=== PATIENT | male | born 1970 | race African-American/Black ===

== ENCOUNTER 2017-03-04 09:26 | Observation (INO) | payer OTHER ==
[2017-03-04] MEDS ORDERED: NS 0.9% 1000 ML* 1,000 ML IV ONE (09:48)
[2017-03-04 10:10] LABS: Hematocrit 42 % (42-52); Hemoglobin 14.5 g/dl (14.0-18.0); Mean Corpuscular HGB Conc 34 g/dl (31-36); Mean Corpuscular Hemoglobin 29 pg (27-31); Mean Corpuscular Volume 84 fL (80-94); Mean Platelet Volume 8 um3 (7.4-10.4); Red Blood Count 5.05 10^6/ul (4.0-5.4); Red Cell Distribution Width 14 % (10.5-15); White Blood Count 4.7 10^3/ul (3.5-10.8)
[2017-03-04 10:15] LABS: Urine Bacteria Absent (Absent); Urine Bilirubin Negative (Negative); Urine Glucose Negative (Negative); Urine Nitrite Negative (Negative)
[2017-03-04 10:22] LABS: ALT 23 U/L (7-52); AST 41 U/L (13-39); Albumin 3.7 g/dL (3.2-5.2); Alkaline Phosphatase 57 U/L (34-104); Anion Gap 11 mmol/L (2-11); BUN/Creatinine Ratio 11.8 (8-20); Blood Urea Nitrogen 12 mg/dL (6-24); CO2 Carbon Dioxide 24 mmol/L (22-32); Chloride 97 mmol/L (101-111); EGFR African American 100.2 (>60); Globulin 4.3 g/dL (2-4); Glucose 148 mg/dL (70-100); Magnesium 1.5 mg/dL (1.9-2.7); Potassium 3.6 mmol/L (3.5-5.0); Sodium 132 mmol/L (133-145)
[2017-03-04 10:23] LABS: Troponin I 0.01 ng/mL (<0.04)
[2017-03-04 10:25] LABS: Benzodiazepine Urine Screen None Detected (None Detect)
--- NOTE | 2017-03-04 10:30 | RAD ---
HISTORY: Syncope COMPARISONS: June 26, 2015 TECHNIQUE: Multiple contiguous axial CT scans were obtained of the head without intravenous contrast. FINDINGS: HEMORRHAGE/INFARCT: There is no hemorrhage or acute infarct. MASSES/SHIFT: There is no mass or shift. EXTRA-AXIAL SPACES: There are no extra-axial fluid collections. SULCI AND VENTRICLES: The sulci and ventricles are normal in size and position for the patient's stated age. CEREBRUM: There are no focal parenchymal abnormalities. BRAINSTEM: There are no focal parenchymal abnormalities. CEREBELLUM: There are no focal parenchymal abnormalities. VESSELS: The vessels are grossly normal. PARANASAL SINUSES: The paranasal sinuses are clear. ORBITS: The orbits are unremarkable. BONES AND SOFT TISSUE: No bone or soft tissue abnormalities are noted. OTHER: None IMPRESSION: NO ACUTE INTRACRANIAL PATHOLOGY.
[2017-03-04 10:32] LABS: Alcohol < 10 mg/dL (<10)
[2017-03-04 10:41] LABS: TSH (Thyroid Stimulating Horm) 1.23 mcIU/mL (0.34-5.60)
--- NOTE | 2017-03-04 10:45 | RAD ---
INDICATION: Syncope COMPARISON: None TECHNIQUE: PA and lateral dual-energy views were obtained. FINDINGS: Bones/Soft Tissues: There are no acute bony findings. Cardiomediastinal: The cardiomediastinal silhouette is normal. Lungs: There are no infiltrates. Pleura: There are no pleural effusions. Other: None IMPRESSION: NEGATIVE EXAMINATION.
[2017-03-04] MEDS ORDERED: Magnesium Oxide TAB* 400 MG PO ONE (10:50)
[2017-03-04] MEDS ORDERED: Ketorolac INJ* 30 MG/ML 1 ML VIAL IV PUSH ONE (11:19)
[2017-03-04] MEDS ORDERED: Ondansetron INJ* 2 MG/ML VIAL IV PRN (11:25)
[2017-03-04] MEDS ORDERED: Thiamine IV* 100 MG/ML 2 ML VIAL IV ONE (11:27)
[2017-03-04] MEDS ORDERED: NS 0.9% 1000 ML* 1,000 ML IV SCH (11:30)
[2017-03-04] MEDS ORDERED: LORazepam INJ* 2 MG/ML 1 ML VIAL IV SCH (12:00)
[2017-03-04] MEDS ORDERED: hydrALAZINE IV* 20 MG/ML VIAL IV SLOW PU PRN (12:07)
[2017-03-04] MEDS ORDERED: amLODIPine TAB* 5 MG PO ONE (13:00)
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
[2017-03-04] MEDS: Acetaminophen TAB* 325 MG PO PRN (20:22)
[2017-03-05 05:49] LABS: Hematocrit 40 % (42-52); Hemoglobin 13.8 g/dl (14.0-18.0); Mean Corpuscular HGB Conc 34 g/dl (31-36); Mean Corpuscular Hemoglobin 29 pg (27-31); Mean Corpuscular Volume 85 fL (80-94); Mean Platelet Volume 8 um3 (7.4-10.4); Red Blood Count 4.71 10^6/ul (4.0-5.4); Red Cell Distribution Width 14 % (10.5-15); White Blood Count 4.1 10^3/ul (3.5-10.8)
[2017-03-05 06:09] LABS: Albumin 3.2 g/dL (3.2-5.2); BUN/Creatinine Ratio 11.7 (8-20); Calcium 8.8 mg/dL (8.6-10.3); EGFR African American 99.1 (>60); EGFR Non-African American 77.1 (>60); Globulin 3.8 g/dL (2-4); Potassium 4.1 mmol/L (3.5-5.0); Total Bilirubin 0.7 mg/dL (0.2-1.0)
[2017-03-05] MEDS: Multivitamins/Minerals TAB PO SCH (08:50)
[2017-03-05] MEDS: Thiamine TAB* 100 MG TAB PO SCH (08:50)
[2017-03-05] MEDS: Folic Acid TAB* 1 MG PO SCH (08:51)
[2017-03-05] MEDS: amLODIPine TAB* 5 MG PO SCH (08:51)
[2017-03-05] MEDS: Acetaminophen TAB* 325 MG PO PRN (08:53)
[2017-03-05 10:03] LABS: Magnesium 1.8 mg/dL (1.9-2.7)
[2017-03-05] MEDS ORDERED: Magnesium Sulfate 2 GM IV* 2 GM/50 ML BAG IVPB ONE (11:30)
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
--- NOTE | 2017-03-05 15:37 | ECHO ---
Patient: CARRIE CHAMBERS [facility] Rec#: [id number] : 1970 Date: 03/05/2017 Age: 46y Height: 172.72 cm / 68.0 in Weight: 100.7 kg / 221.9 lbs Sex: M BSA: 2.1 Room#: [facility] Admit Date#: 03/05/2017 Type: Inpatient Referring: Evelin Campos Reading: Hiram Quintero DO Braker Passenger Train: Sonya Lancaster RN RDCS CC: Vikki Hyatt MD Transthoracic Echocardiogram Indication: Syncope BP: 150/95 HR: 77 Rhythm: NSR Findings History: HTN, ETOH use, marijuana use Technical Comments: The study quality is fair. Completed at 1525. Left Ventricle: The left ventricular chamber size is normal. Mild to moderate concentric left ventricular hypertrophy is observed. Global left ventricular wall motion and contractility are within normal limits. There is normal left ventricular systolic function. The estimated ejection fraction is 55-60%. Abnormal left ventricular diastolic filling is observed, consistent with impaired relaxation. Left Atrium: The left atrium is mildly dilated. Right Ventricle: The right ventricular chamber size and systolic function are within normal limits. Right Atrium: The right atrial cavity size is normal. Aortic Valve: The aortic valve is trileaflet. The aortic valve leaflets are mildly thickened. There is trace to mild aortic regurgitation. There is no evidence of aortic stenosis. Mitral Valve: The mitral valve leaflets are mildly thickened. There is a trace of mitral regurgitation. There is no evidence of mitral stenosis. Tricuspid Valve: The tricuspid valve leaflets are normal. There is trace tricuspid regurgitation. Unable to estimate the right ventricular systolic pressure. Pulmonic Valve: The pulmonic valve appears normal. There is a trace pulmonic regurgitation. There is no pulmonic stenosis. Pericardium: There is no significant pericardial effusion. Aorta: There is no dilatation of the ascending aorta. There is no dilatation of the aortic arch. There is no dilation of the aortic root. Pulmonary Artery: The main pulmonary artery is not well visualized. Venous: The inferior vena cava appears normal in size. There is a greater than 50% respiratory change in the inferior vena cava dimension. Conclusions The left ventricular chamber size is normal. Mild to moderate concentric left ventricular hypertrophy is observed. There is normal left ventricular systolic function. The estimated ejection fraction is 55-60%. The left atrium is mildly dilated. The right ventricular chamber size and systolic function are within normal limits. No significant valvular abnormalities are noted. No prior studies available for comparison at time of interpretation. Measurements Name Value Normal Range RVDdMajor (2D) 3.7 cm (2.2 - 4.4) RAd ISD 4CH 4.7 cm (3.4 - 4.9) RA (A4C)W 4.3 cm (2.9 - 4.6) IVSd (2D) 1.4 cm (0.6 - 1) LVPWd (2D) 1.4 cm (0.6 - 1) LVIDd (2D) 4.2 cm (3.6 - 5.4) LVIDs (2D) 3.3 cm - LV FS (2D) 21 % (25 - 45) Aortic Annulus 2.3 cm (1.4 - 2.6) Ao root diameter (2D) 3.2 cm (2.1 - 3.5) Ascending Ao 3.2 cm (2.1 - 3.4) Aortic arch 2.9 cm (1.8 - 3.4) LA dimension (AP) 2D 4.2 cm (2.3 - 3.8) LAd ISD 4CH 5 cm (2.9 - 5.3) LA ISD 4CH W 4.3 cm (2.5 - 4.5) Name Value Normal Range LA ESV SP 4CH (A/L) 64 ml - LA ESV SP 2CH (A/L) 58 ml - LA ESV BP (A/L) 62 ml - LA ESV BP (A/L) index 29 ml/m2 - LA ESV SP 4CH (MOD) 59 ml - LA ESV SP 2CH (MOD) 56 ml - Name Value Normal Range MV E-wave Vmax 0.53 m/sec - MV deceleration time 197 msec - MV A-wave Vmax 0.83 m/sec - MV E:A ratio 0.64 ratio - LV septal e' Vmax 0.08 m/sec - LV lateral e' Vmax 0.1 m/sec - LV E:e' septal ratio 6.6 ratio - LV E:e' lateral ratio 5.3 ratio - Name Value Normal Range AV Vmax 1.6 m/sec - AV VTI 24.6 cm - AV peak gradient 10 mmHg - AV mean gradient 5 mmHg - LVOT Vmax 1.1 m/sec - LVOT VTI 17.4 cm - LVOT peak gradient 5 mmHg - LVOT mean gradient 3 mmHg - KENYA Vmax 1 m/sec - Name Value Normal Range IVC diameter 1.2 cm - Name Value Normal Range PV Vmax 1 m/sec -
[2017-03-05] MEDS: Heparin VIAL(*) 5000 UNITS/ML VIAL (FIVE THOUSAND) SUBCUT SCH (21:22)
[2017-03-06 05:18] LABS: Hematocrit 39 % (42-52); Hemoglobin 13.2 g/dl (14.0-18.0); Mean Corpuscular HGB Conc 34 g/dl (31-36); Mean Corpuscular Hemoglobin 29 pg (27-31); Mean Corpuscular Volume 86 fL (80-94); Mean Platelet Volume 8 um3 (7.4-10.4); Red Blood Count 4.57 10^6/ul (4.0-5.4); Red Cell Distribution Width 14 % (10.5-15); White Blood Count 5.1 10^3/ul (3.5-10.8)
[2017-03-06 05:27] LABS: BUN/Creatinine Ratio 9.9 (8-20); Calcium 8.6 mg/dL (8.6-10.3); EGFR African American 101.4 (>60); EGFR Non-African American 78.8 (>60); Magnesium 1.9 mg/dL (1.9-2.7); Potassium 3.6 mmol/L (3.5-5.0)
[2017-03-06] MEDS: Heparin VIAL(*) 5000 UNITS/ML VIAL (FIVE THOUSAND) SUBCUT SCH (06:00)
[2017-03-06 08:01] VITALS: BP 136/88
[2017-03-06] MEDS: Thiamine TAB* 100 MG TAB PO SCH (08:19)
[2017-03-06] MEDS: amLODIPine TAB* 5 MG PO SCH (08:19)
[2017-03-06] MEDS: Multivitamins/Minerals TAB PO SCH (08:19)
[2017-03-06] MEDS: Folic Acid TAB* 1 MG PO SCH (08:20)
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
== END 2017-03-06 10:00 | disposition home or self-care (01) ==
LOC: ED 09:26 → MEDTELE 11:25
PROVIDERS: ADMIT Internal Medicine; ATTEND Internal Medicine
DX: R55 Syncope and collapse (principal); R74.0 Nonspecific elevation of levels of transaminase and lactic acid dehydrogenase [LDH]; F10.20 Alcohol dependence, uncomplicated; I10 Essential (primary) hypertension; R00.0 Tachycardia, unspecified; I51.7 Cardiomegaly; R06.02 Shortness of breath; Z79.899 Other long term (current) drug therapy
CPT/HCPCS: 36415; 70450; 71020; 80048; 80053; 80307; 80320; 81003; 81015; 83036; 83605; 83735; 83880; 84443; 84484; 85025; 85379; 93005; 93306; 95816; 96361; 96365; 96372; 96375; 99283; A9270-GY; G0378; G0480; J1644; J1885

== ENCOUNTER 2017-04-29 15:28 | Observation (INO) | payer OTHER ==
[2017-04-29] MEDS ORDERED: Labetalol IV* 5 MG/ML 20 ML VIAL IV PUSH ONE (17:26)
[2017-04-29] MEDS ORDERED: Furosemide IV* 10 MG/ML 2 ML VIAL (20 MG) IV SLOW PU ONE (17:26)
[2017-04-29 17:32] LABS: Hematocrit 43 % (42-52); Hemoglobin 14.5 g/dl (14.0-18.0); Mean Corpuscular HGB Conc 34 g/dl (31-36); Mean Corpuscular Hemoglobin 29 pg (27-31); Mean Corpuscular Volume 84 fL (80-94); Mean Platelet Volume 8 um3 (7.4-10.4); Red Blood Count 5.08 10^6/ul (4.0-5.4); Red Cell Distribution Width 14 % (10.5-15); White Blood Count 4.8 10^3/ul (3.5-10.8)
[2017-04-29 17:45] LABS: Albumin 3.8 g/dL (3.2-5.2); BUN/Creatinine Ratio 10.9 (8-20); C Reactive Protein 1.64 mg/L (< 5.00); Calcium 9.8 mg/dL (8.6-10.3); EGFR African American 112.9 (>60); EGFR Non-African American 87.8 (>60); Globulin 4.1 g/dL (2-4); Potassium 3.9 mmol/L (3.5-5.0); Total Bilirubin 0.6 mg/dL (0.2-1.0); Total Protein 7.9 g/dL (6.4-8.9)
[2017-04-29 17:48] LABS: Troponin I 0.01 ng/mL (<0.04)
--- NOTE | 2017-04-29 18:22 | RAD ---
Indication: Shortness of breath. 2 views of the chest demonstrate no mediastinal shift. Heart is of normal size and configuration. Lung mccloud are clear. IMPRESSION: No active cardiopulmonary disease is noted.
[2017-04-29] MEDS ORDERED: Ondansetron INJ* 2 MG/ML VIAL IV PRN (18:31)
[2017-04-29] MEDS ORDERED: Acetaminophen TAB* 325 MG PO PRN (18:31)
[2017-04-29] MEDS ORDERED: hydrALAZINE IV* 20 MG/ML VIAL IV SLOW PU PRN (18:35)
[2017-04-29] MEDS ORDERED: Furosemide IV* 10 MG/ML 2 ML VIAL (20 MG) IV ONE (18:36)
[2017-04-29 18:37] LABS: Urine Bacteria Absent (Absent); Urine Bilirubin Negative (Negative); Urine Glucose Negative (Negative); Urine Nitrite Negative (Negative)
[2017-04-29] MEDS ORDERED: LORazepam TAB(*) 1 MG PO ONE (18:56)
[2017-04-29] MEDS ORDERED: Enoxaparin(*) 40 MG/0.4 ML SYR SUBCUT SCH (19:00)
[2017-04-29] MEDS ORDERED: LORazepam TAB(*) 1 MG PO SCH (19:00)
[2017-04-29] MEDS: amLODIPine TAB* 5 MG PO SCH (19:04)
[2017-04-29 21:03] LABS: TSH (Thyroid Stimulating Horm) 3.33 mcIU/mL (0.34-5.60)
--- NOTE | 2017-04-29 21:06 | HP ---
ADMISSION HISTORY AND PHYSICAL: DATE OF ADMISSION: 04/29/17 PRIMARY CARE PROVIDER: None. ADMITTING PROVIDER: MENDY Dahl SUPERVISING PHYSICIAN: Dr. Aldo Brown.* (DICTATED BY MENDY DAHL) CHIEF COMPLAINT: Alcohol withdrawal with shortness of breath and lower extremity edema. HISTORY OF PRESENT ILLNESS: This is a 46-year-old gentleman with history of hypertension. He has been without his antihypertensive medications for the last several days, who was arrested last night and presented to the emergency department with the above complaints. The patient states that he has been consuming 100 to 125 ounces of beer daily. His last drink was yesterday. He denies any history of seizures associated with withdrawal, but frequently experiences visual hallucinations. Starting today, he has been somewhat tremulous with frequent dry heaves. The patient has been having increased shortness of breath over the last 2 to 3 weeks and has somewhat chronic lower extremity edema that he believes is "the worst it has been." He is unable to say if he has gained a significant amount of weight. He denies any associated chest pain. The patient was seen in February of this past year after a syncopal event that seems to essentially be alcohol related. He had an echocardiogram completed at that time that showed [id number] LVH, but a preserved left ventricular ejection fraction. The patient denies any recent illness. He states that he is having some cramping abdominal discomfort, but no true abdominal pain. Again, he denies chest pain, but positive for shortness of breath. Some nausea with dry heavings , but no vomiting or diarrhea. No recent rashes, fevers, or significant changes in weight. PAST MEDICAL HISTORY: 1. Hypertension. 2. Alcoholism. PAST SURGICAL HISTORY: None. HOME MEDICATIONS: Amlodipine 5 mg daily. SOCIAL HISTORY: The patient is currently incarcerated at the local long term, but generally lives with his girlfriend. He denies any smoking history or illicit drug use. He admits to regular alcohol consumption generally between 100 and 125 ounces of beer daily. REVIEW OF SYSTEMS: As noted above in HPI. All other systems reviewed and negative. PHYSICAL EXAMINATION GENERAL: This is a pleasant middle-aged gentleman, who is lying in a hospital stretcher in handcuffs accompanied by superintendent police in no acute distress, although he does look slightly anxious and mildly diaphoretic. VITAL SIGNS: Initial vitals, temperature 98.4 degrees Fahrenheit, pulse 95 beats per minute, respiratory rate 20, oxygen saturation 99% on room air, blood pressure 212/132 mmHg. HEENT: Head is normocephalic, atraumatic. Mucous membranes are pink and moist. NECK: Supple. Free of lymphadenopathy with no obvious JVD. RESPIRATORY: Lungs are clear to auscultation without wheezes, crackles, or rhonchi. CARDIOVASCULAR: Heart has a regular rate and rhythm. There is a slight murmur appreciated, however. ABDOMEN: Soft and nontender to palpation. EXTREMITIES: The patient has trace lower extremity edema. PSYCH: The patient is alert and appropriately oriented. SKIN: No concerning rashes or lesions. DIAGNOSTIC STUDIES/LAB DATA: CBC shows white blood cell count of 4800, hemoglobin of 14.5 g/dL, and a platelet count of 190,000. Comprehensive metabolic panel shows mild hyponatremia of a sodium of 131, normal potassium at 3.9, serum bicarb normal at 24, BUN of 10, creatinine 0.92 with an estimated GFR of 87, random glucose of 102. Total bilirubin and transaminases within normal limits. Total creatine kinase was elevated at 809 and subsequent CK-MB elevated at 8.9. Troponin is negative, however, at 0.01. CRP is negligible at 1.6. Urinalysis shows 3+ protein, otherwise unremarkable. Imaging: Chest x-ray shows no acute process. EKG shows a normal sinus rhythm. ASSESSMENT AND PLAN: This is a 46-year-old gentleman with a history of hypertension and alcoholism, who presents in mild withdrawal as well as hypertensive urgency. The patient is being admitted to observation status. 1. Hypertensive urgency - no evidence of end-organ damage, although the patient is quite edematous. It is likely due to exacerbation of diastolic heart failure. He is not experiencing chest pain, however, and troponins are negative without ischemic changes noted on EKG. The patient received labetalol and Lasix in the emergency department. We will give one additional dose of Lasix at this time. We will give his oral amlodipine and treat with as needed hydralazine for resistant hypertension. 2. Acute exacerbation of diastolic heart failure - the patient has noted lower extremity edema with complaints of shortness of breath. No pulmonary edema appreciated on chest x-ray or with physical exam. 3. Acute alcohol withdrawal - symptoms are quite mild at this time and the patient will be treated with oral Ativan and monitored per [facility] protocol. 4. Heart murmur - this seems to be a new finding, no significant valvular disease noted on prior echocardiogram. We will plan to repeat echocardiogram to evaluate this specifically. 5. Code status - the patient is full code. 6. Healthcare proxy is the patient's girlfriend, Saritha . DISPOSITION: The patient is being admitted to observation status with anticipated discharge tomorrow morning. MENDY DAHL [id number]/[facility] #: [id number] SUN
[2017-04-30 05:54] LABS: Calcium 9.3 mg/dL (8.6-10.3); EGFR African American 91.9 (>60); EGFR Non-African American 71.4 (>60); Potassium 3.5 mmol/L (3.5-5.0)
[2017-04-30] MEDS: amLODIPine TAB* 5 MG PO SCH (08:30)
[2017-04-30] MEDS ORDERED: Multivitamins/Minerals TAB PO SCH (09:00)
[2017-04-30] MEDS ORDERED: Thiamine TAB* 100 MG TAB PO SCH (09:00)
[2017-04-30] MEDS ORDERED: Furosemide TAB* 20 MG PO SCH (09:00)
[2017-04-30] MEDS ORDERED: Folic Acid TAB* 1 MG PO SCH (09:00)
--- NOTE | 2017-04-30 09:17 | ED ---
Teagan Beatty Alfonso, scribed for Ba Zarco MD on 04/29/17 at 1733 . Hypertension - HPI Summary HPI Summary: The patient is a 46 year old male presenting to the ED c/o acute on chronic hypertension for an unspecified period of time. He reports SOB, edema, productive coughing, and "dry heaving." Denies nausea or vomiting. Sx aggravated and alleviated by nothing. States he is undergoing alcohol withdrawal with his last drink being yesterday. He drinks approximately 3 large beers every day. PMHx of hypoglycemia, and syncopal episodes. - History of Current Complaint Chief Complaint: EDHypertension Stated Complaint: WITHDRAWLS, RT ANKLE PAIN Time Seen by Provider: 04/29/17 16:52 Hx Obtained From: Patient Onset/Duration: Still Present Timing: Constant Aggravating Factor(s): Nothing Alleviating Factor(s): Nothing Associated Signs & Symptoms: SOB, Swelling - Bilateral lower extremities, Other : - Negative nausea and vomiting; Positive productive coughing and "dry heaving. " - Allergies/Home Medications Allergies/Adverse Reactions: Allergies Allergy/AdvReac Type Severity Reaction Status Date / Time No Known Allergies Allergy Verified 03/04/17 11:31 PMH/Surg Hx/FS Hx/Imm Hx Endocrine/Hematology History: Denies: Hx Diabetes, Hx Thyroid Disease Cardiovascular History: Denies: Hx Hypertension, Hx Pacemaker/ICD Respiratory History: Reports: Hx Asthma Denies: Hx Chronic Obstructive Pulmonary Disease (COPD) GI History: Denies: Hx Ulcer Sensory History: Denies: Hx Contacts or Glasses, Hx Hearing Aid Opthamlomology History: Denies: Hx Contacts or Glasses Psychiatric History: Reports: Hx Panic Disorder, Hx of Violent Episodes Against Others Infectious Disease History: No Infectious Disease History: Denies: Hx Hepatitis, Hx Human Immunodeficiency Virus (HIV), Traveled Outside the [place] in Last 30 Days - Family History Known Family History: Positive: Unknown - [facility] and "has not seen parents in a long time" Family History: The patient does not know his family Hx. - Social History Alcohol Use: Daily Alcohol Amount: beer, 3X 24oz beers daily Substance Use Type: Reports: None Smoking Status (MU): Never Smoked Tobacco Review of Systems Positive: Other - Positive HTN Positive: Shortness Of Breath, Cough - Productive, Other - Positive "dry heaving " Negative: Vomiting, Nausea Positive: Edema All Other Systems Reviewed And Are Negative: Yes Physical Exam - Summary Physical Exam Summary: VITAL SIGNS: Reviewed. GENERAL: Patient is a well-developed and nourished (MALE OR FEMALE) who is lying comfortable in the stretcher. Patient is not in any acute respiratory distress. HEAD AND FACE: No signs of trauma. No ecchymosis, hematomas or skull depressions. No sinus tenderness. EYES: PERRLA, EOMI x 2, No injected conjunctiva, no nystagmus. EARS: Hearing grossly intact. Ear canals and tympanic membranes are within normal limits. MOUTH: Oropharynx within normal limits. NECK: Supple, trachea is midline, no adenopathy, no JVD, no carotid bruit, no c- spine tenderness, neck with full ROM. CHEST: Symmetric, no tenderness at palpation LUNGS: Crackles in both bases of the lungs CVS: Regular rate and rhythm, S1 and S2 present, no murmurs or gallops appreciated. ABDOMEN: Soft, non-tender. No signs of distention. No rebound no guarding, and no masses palpated. Bowel sounds are normal. EXTREMITIES: 1+ edema in bilateral lower extremities. NEURO: Alert and oriented x 3. No acute neurological deficits. Speech is normal and follows commands. SKIN: Dry and warm Triage Information Reviewed: Yes Vital Signs On Initial Exam: Initial Vitals Temp Pulse Resp BP Pulse Ox 98.4 F 95 20 212/132 99 04/29/17 15:52 04/29/17 15:52 04/29/17 15:52 04/29/17 15:52 04/29/17 15:52 Vital Signs Reviewed: Yes Diagnostics - Vital Signs Vital Signs Temp Pulse Resp BP Pulse Ox 04/29/17 16:54 25 04/29/17 15:59 97.6 F 95 20 212/132 100 04/29/17 15:52 98.4 F 95 20 212/132 99 - Laboratory Lab Results: Lab Results 04/29/17 04/29/17 04/29/17 Range/Units 17:18 17:18 17:18 WBC 4.8 (3.5-10.8) 10^3/ul RBC 5.08 (4.0-5.4) 10^6/ul Hgb 14.5 (14.0-18.0) g/dl Hct 43 (42-52) % MCV 84 (80-94) fL MCH 29 (27-31) pg MCHC 34 (31-36) g/dl RDW 14 (10.5-15) % Plt Count 190 (150-450) 10^3/ul MPV 8 (7.4-10.4) um3 Neut % (Auto) 69.6 (38-83) % Lymph % (Auto) 15.9 L (25-47) % [place] % (Auto) 12.1 H (1-9) % Eos % (Auto) 1.7 (0-6) % Baso % (Auto) 0.7 (0-2) % Absolute Neuts (auto) 3.4 (1.5-7.7) 10^3/ul Absolute Lymphs (auto) 0.8 L (1.0-4.8) 10^3/ul Absolute Monos (auto) 0.6 (0-0.8) 10^3/ul Absolute Eos (auto) 0.1 (0-0.6) 10^3/ul Absolute Basos (auto) 0 (0-0.2) 10^3/ul Absolute Nucleated RBC 0.01 10^3/ul Nucleated RBC % 0.2 APTT 32.8 (26.0-36.3) seconds Sodium 131 L (133-145) mmol/L Potassium 3.9 (3.5-5.0) mmol/L Chloride 98 L (101-111) mmol/L Carbon Dioxide 24 (22-32) mmol/L Anion Gap 9 (2-11) mmol/L BUN 10 (6-24) mg/dL Creatinine 0.92 (0.67-1.17) mg/dL Est GFR ( Amer) 112.9 (>60) Est GFR (Non-Af Amer) 87.8 (>60) BUN/Creatinine Ratio 10.9 (8-20) Glucose 102 H (70-100) mg/dL Lactic Acid (0.5-2.0) mmol/L Calcium 9.8 (8.6-10.3) mg/dL Total Bilirubin 0.60 (0.2-1.0) mg/dL AST 44 H (13-39) U/L ALT 29 (7-52) U/L Alkaline Phosphatase 60 (34-104) U/L Total Creatine Kinase 809 H (10-223) U/L CK-MB (CK-2) 8.9 H (0.6-6.3) ng/mL Myoglobin 80.9 (17.4-105.7) ng/mL Troponin I 0.01 (<0.04) ng/mL C-Reactive Protein 1.64 (< 5.00) mg/L B-Natriuretic Peptide ( - 100) pg/mL Total Protein 7.9 (6.4-8.9) g/dL Albumin 3.8 (3.2-5.2) g/dL Globulin 4.1 H (2-4) g/dL Albumin/Globulin Ratio 0.9 L (1-3) TSH 3.33 (0.34-5.60) mcIU/mL Urine Color Urine Appearance Urine pH (5-9) Ur Specific [place] (1.010-1.030) Urine Protein (Negative) Urine Ketones (Negative) Urine Blood (Negative) Urine Nitrate (Negative) Urine Bilirubin (Negative) Urine Urobilinogen (Negative) Ur Leukocyte Esterase (Negative) Urine WBC (Auto) (Absent) Urine RBC (Auto) (Absent) Ur Squamous Epith Cells (Absent) Urine Bacteria (Absent) Urine Glucose (Negative) 04/29/17 04/29/17 04/29/17 Range/Units 17:18 17:18 18:20 WBC (3.5-10.8) 10^3/ul RBC (4.0-5.4) 10^6/ul Hgb (14.0-18.0) g/dl Hct (42-52) % MCV (80-94) fL MCH (27-31) pg MCHC (31-36) g/dl RDW (10.5-15) % Plt Count (150-450) 10^3/ul MPV (7.4-10.4) um3 Neut % (Auto) (38-83) % Lymph % (Auto) (25-47) % [place] % (Auto) (1-9) % Eos % (Auto) (0-6) % Baso % (Auto) (0-2) % Absolute Neuts (auto) (1.5-7.7) 10^3/ul Absolute Lymphs (auto) (1.0-4.8) 10^3/ul Absolute Monos (auto) (0-0.8) 10^3/ul Absolute Eos (auto) (0-0.6) 10^3/ul Absolute Basos (auto) (0-0.2) 10^3/ul Absolute Nucleated RBC 10^3/ul Nucleated RBC % APTT (26.0-36.3) seconds Sodium (133-145) mmol/L Potassium (3.5-5.0) mmol/L Chloride (101-111) mmol/L Carbon Dioxide (22-32) mmol/L Anion Gap (2-11) mmol/L BUN (6-24) mg/dL Creatinine (0.67-1.17) mg/dL Est GFR ( Amer) (>60) Est GFR (Non-Af Amer) (>60) BUN/Creatinine Ratio (8-20) Glucose (70-100) mg/dL Lactic Acid 0.9 (0.5-2.0) mmol/L Calcium (8.6-10.3) mg/dL Total Bilirubin (0.2-1.0) mg/dL AST (13-39) U/L ALT (7-52) U/L Alkaline Phosphatase (34-104) U/L Total Creatine Kinase (10-223) U/L CK-MB (CK-2) (0.6-6.3) ng/mL Myoglobin (17.4-105.7) ng/mL Troponin I (<0.04) ng/mL C-Reactive Protein (< 5.00) mg/L B-Natriuretic Peptide 21 ( - 100) pg/mL Total Protein (6.4-8.9) g/dL Albumin (3.2-5.2) g/dL Globulin (2-4) g/dL Albumin/Globulin Ratio (1-3) TSH (0.34-5.60) mcIU/mL Urine Color Yellow Urine Appearance Clear Urine pH 7.0 (5-9) Ur Specific [place] 1.012 (1.010-1.030) Urine Protein 3+(>=500 mg/dl) H (Negative) Urine Ketones Negative (Negative) Urine Blood Negative (Negative) Urine Nitrate Negative (Negative) Urine Bilirubin Negative (Negative) Urine Urobilinogen Negative (Negative) Ur Leukocyte Esterase Negative (Negative) Urine WBC (Auto) Trace(0-5/hpf) (Absent) Urine RBC (Auto) Trace(0-2/hpf) (Absent) Ur Squamous Epith Cells Present H (Absent) Urine Bacteria Absent (Absent) Urine Glucose Negative (Negative) Result Diagrams: 04/29/17 17:18 04/30/17 05:08 Lab Statement: Any lab studies that have been ordered have been reviewed, and results considered in the medical decision making process. - Radiology CXR Xray Interpretation: No Acute Changes - No active cardiopulmonary disease is noted. Radiology Interpretation Completed By: Radiologist - EKG 1629 Cardiac Rate: NL - 88 bpm EKG Rhythm: Sinus Rhythm EKG Interpretation: ST elevations in V3-V5 EKG Comparison: No Significant Change - EKG is very similar to EKG on 03/07/2017 Hypertension Course/Dx - Course Assessment/Plan: Initially the patient came with a BP of 216/132. The patient complains of SOB and pedal edema. The patient denies any CP. Test results show Sodium of 131, Glucose 102, Total creatine kinase at 809, BNP 21, and Troponin 0.01. In the ED course given Labetalol and Lasix. I discussed my PE finding with MENDY English who accepted the patient for admission under Dr. Thomas s services. The patient is feeling better and is A&Ox3. - Diagnoses Provider Diagnoses: Hypertensive urgency, Bilateral lower extremity edema - Physician Notifications Discussed Care Of Patient With: Aroldo English - Accepts pt to Dr. Lockhart's services. Time Discussed With Above Provider: 17:56 Discharge - Discharge Plan Condition: Good Disposition: ADMITTED TO [facility] The documentation as recorded by the Teagan leon Alfonso accurately reflects the service I personally performed and the decisions made by me, Ba Zarco MD.
[2017-04-30 11:32] VITALS: BP 154/108
[2017-04-30] MEDS ORDERED: Albuterol 2.5 MG/3 ML NEB.SOL* (0.083%) INH PRN (12:05)
--- NOTE | 2017-04-30 14:19 | ECHO ---
Patient: CARRIE CHAMBERS [facility] Rec#: [id number] : 1970 Date: 04/30/2017 Age: 46y Height: 172.7 cm / 68.0 in Weight: 104.3 kg / 229.9 lbs Sex: M BSA: 2.17 Room#: [facility] Admit Date#: 04/29/2017 Type: Inpatient Referring: [place] Reading: Hriam Quintero DO Director Customer: Sonya Lnacaster RN RDCS Transthoracic Echocardiogram Indication: New murmur, SOB, edema BP: 142/89 HR: 84 Rhythm: NSR Findings History: HTN, ETOH use, marijuana use Technical Comments: The study quality is fair. Completed at 1310. Left Ventricle: The left ventricular chamber size is normal. Mild to moderate concentric left ventricular hypertrophy is observed. Mild global hypokinesis of the left ventricle is observed. There is mildly decreased left ventricular systolic function. The estimated ejection fraction is 45-50%. Abnormal left ventricular diastolic filling is observed, consistent with impaired relaxation. Left Atrium: The left atrium is mildly dilated. Right Ventricle: The right ventricular cavity size is normal. The right ventricular global systolic function is mildly reduced. Right Atrium: The right atrial cavity size is normal. Aortic Valve: The aortic valve is trileaflet. The aortic valve leaflets are mildly thickened. There is a trace of aortic regurgitation. There is no evidence of aortic stenosis. Mitral Valve: The mitral valve leaflets are mildly thickened. There is a trace of mitral regurgitation. There is no evidence of mitral stenosis. Tricuspid Valve: The tricuspid valve leaflets are normal. There is trace tricuspid regurgitation. Unable to estimate the right ventricular systolic pressure. Pulmonic Valve: The pulmonic valve appears normal. There is a trace pulmonic regurgitation. There is no pulmonic stenosis. Pericardium: There is no significant pericardial effusion. Aorta: There is no dilatation of the ascending aorta. There is no dilatation of the aortic arch. The aortic root is normal in size. Pulmonary Artery: The main pulmonary artery is not well visualized. Venous: The inferior vena cava appears normal in size. There is a greater than 50% respiratory change in the inferior vena cava dimension. Conclusions The left ventricular chamber size is normal. Mild to moderate concentric left ventricular hypertrophy is observed. Mild global hypokinesis of the left ventricle is observed. There is mildly decreased left ventricular systolic function. The estimated ejection fraction is 45-50%. The left atrium is mildly dilated. The right ventricular cavity size is normal. The right ventricular global systolic function is mildly reduced. No significant valvular abnormalities noted Unable to estimate the right ventricular systolic pressure. Compared to prior study from 03/05/2017, there is now mild biventricular dysfunction present. Measurements Name Value Normal Range RVDdMajor (2D) 3.8 cm (2.2 - 4.4) RAd ISD 4CH 4.1 cm (3.4 - 4.9) RA (A4C)W 3.9 cm (2.9 - 4.6) IVSd (2D) 1.3 cm (0.6 - 1) LVPWd (2D) 1.3 cm (0.6 - 1) LVIDd (2D) 4.7 cm (3.6 - 5.4) LVIDs (2D) 3.5 cm - LV FS (2D) 25 % (25 - 45) Aortic Annulus 2.3 cm (1.4 - 2.6) Ao root diameter (2D) 3 cm (2.1 - 3.5) Ascending Ao 3 cm (2.1 - 3.4) Aortic arch 3.1 cm (1.8 - 3.4) LA dimension (AP) 2D 4.1 cm (2.3 - 3.8) LAd ISD 4CH 4.7 cm (2.9 - 5.3) LA ISD 4CH W 3.9 cm (2.5 - 4.5) Name Value Normal Range LA ESV SP 4CH (A/L) 51 ml - LA ESV SP 2CH (A/L) 48 ml - LA ESV BP (A/L) 52 ml - LA ESV BP (A/L) index 24 ml/m2 - LA ESV SP 4CH (MOD) 48 ml - LA ESV SP 2CH (MOD) 47 ml - LV EDV SP 4CH (MOD) 170.35 ml - LV ESV SP 4CH (MOD) 93.51 ml - EF SP 4CH (MOD) 45.11 % - Name Value Normal Range MV E-wave Vmax 0.38 m/sec - MV deceleration time 357 msec - MV A-wave Vmax 0.87 m/sec - MV E:A ratio 0.4 ratio - LV septal e' Vmax 0.06 m/sec - LV lateral e' Vmax 0.08 m/sec - LV E:e' septal ratio 6.3 ratio - LV E:e' lateral ratio 4.8 ratio - Name Value Normal Range AV Vmax 1.2 m/sec - AV VTI 23.8 cm - AV peak gradient 6 mmHg - AV mean gradient 4 mmHg - LVOT Vmax 0.92 m/sec - LVOT VTI 17.1 cm - KENYA Vmax 0.75 m/sec - Name Value Normal Range IVC diameter 1.2 cm - Name Value Normal Range PV Vmax 0.84 m/sec -
--- NOTE | 2017-05-01 01:26 | DS ---
CC: [facility] * DISCHARGE SUMMARY: DATE OF ADMISSION: 04/29/17 DATE OF DISCHARGE: 04/30/17 PRIMARY CARE PROVIDER: None, currently under the care of [facility]. DISCHARGING PROVIDER: MENDY Dahl SUPERVISING PHYSICIAN: Aldo Brown MD * (DICTATED BY MENDY DAHL) PRIMARY DISCHARGE DIAGNOSES: 1. Hypertensive urgency with acute exacerbation of chronic systolic and diastolic heart failure. 2. Acute alcohol withdrawal - mild. SECONDARY DISCHARGE DIAGNOSES: 1. Alcoholism. 2. History of medication noncompliance. DISCHARGE MEDICATIONS: 1. Carvedilol 12.5 mg p.o. twice daily. 2. Folic acid 1 mg p.o. daily. 3. Lasix 20 mg p.o. daily. 4. Multivitamin 1 tablet p.o. daily. 5. Thiamine 100 mg p.o. daily. 6. Amlodipine 5 mg p.o. daily. MEDICATION CHANGES: All medications above are new with the exception of amlodipine. HOSPITAL IMAGIN. Chest x-ray shows no acute process. 2. Transthoracic echocardiogram shows [id number] LVH with mildly suppressed LV function with estimated EF of 45% to 60% as well as mildly depressed right ventricular function. No significant valvular abnormalities noted. 3. EKG shows a sinus rhythm without acute ischemic changes. HOSPITAL COURSE: This is a 46-year-old gentleman with hypertension and alcoholism, who presented to the emergency department with concerns for alcohol withdrawal and complaints of shortness of breath and lower extremity edema, coming from the [facility] after being arrested approximately 24 hours earlier. The patient states that he has some chronic lower extremity edema, believes that it has been somewhat worse recently, and he has been having progressive shortness of breath over the last couple of weeks. His last alcoholic beverage was approximately 24 hours prior to visiting the emergency department and he was feeling somewhat nauseated with dry heaves and some mild tremulousness. The patient was noted to be severely hypertensive when he reached the emergency department with initial blood pressure read as 212/132 mmHg. The patient denied chest pain. Initial EKG did not show any ischemic changes and troponin was negative. The patient did have some mild lower extremity edema on exam. He was complaining of dyspnea, but no hypoxia noted on vital signs. The patient's blood pressure was treated with labetalol followed by hydralazine and Lasix in the emergency department. His withdrawal proves to be fairly mild and he received just 1 mg of oral Ativan and his presenting symptoms resolved without recurrence. The patient was started on oral amlodipine and Lasix and his blood pressure improved. He was maintained on continuous telemetry monitoring, which showed no dysrhythmias. He did have a mild murmur appreciated on initial exam and for that reason, echocardiogram was repeated. His last echo from February of this year showed some diastolic dysfunction associated with LVH, but no systolic dysfunction noted or valvular abnormalities. Repeat echocardiogram demonstrated some mild biventricular dysfunction along with an abnormal diastolic filling pattern, but no valvular abnormalities noted. His biventricular failure is likely due to hypertension, but also maybe alcohol induced. Discussed this with the patient and the importance of maintaining sobriety and appropriate blood pressure control. DISPOSITION AND FOLLOW-UP PLAN: The patient is being discharged back to the care of [facility]. Discharge medications were discussed with the nurse at the [place] [facility]. Recommended medications as listed above with daily blood pressure checks. If he remains hypertensive, further titration of the antihypertensives are indicated. MENDY DAHL [id number]/[facility] #: [id number] [place]
== END 2017-04-30 15:49 ==
LOC: ED 15:28 → MEDTELE 18:31 → EEVIPCON 18:31
PROVIDERS: ADMIT Internal Medicine; ATTEND Internal Medicine
DX: I11.0 Hypertensive heart disease with heart failure (principal); I50.43 Acute on chronic combined systolic (congestive) and diastolic (congestive) heart failure; I16.0 Hypertensive urgency; F10.239 Alcohol dependence with withdrawal, unspecified; Z91.14 Patient's other noncompliance with medication regimen; R60.9 Edema, unspecified; R01.1 Cardiac murmur, unspecified; R06.02 Shortness of breath
CPT/HCPCS: 36415; 71020; 80048; 80053; 81003; 81015; 82550; 82553; 83605; 83874; 83880; 84443; 84484; 85025; 85730; 86140; 93005; 93306; 94640; 96372; 96374; 96375; 96376; 99284; A9270-GY; G0378; J0360; J1650; J1940